=== PATIENT | female | born 1965 | race Caucasian/White ===

== ENCOUNTER 2016-06-10 17:02 | Emergency (ER) | payer OTHER ==
[~2016-06-10] VITALS: Ht 170.2 cm; Wt 83.9 kg
[2016-06-10] MEDS ORDERED: SIMV20TA2 (17:12)
[2016-06-10] MEDS ORDERED: ONDANSETRON 4MG/2ML VIAL (J2405) IV ONE (17:45)
[2016-06-10] MEDS ORDERED: ACETAMINOPHEN 325 MG TAB PO ONE (17:45)
[2016-06-10] MEDS ORDERED: PANTOPRAZOLE 40MG INJ (PROTONIX) (C9113) IV ONE (17:45)
[2016-06-10] MEDS ORDERED: NS 1,000 ML IV ONE (17:45)
[2016-06-10 18:08] LABS: BASO % 0.4 % (0.0-1.0); EOS % 0.6 % (0.0-3.0); LARGE UNSTAINED CELL # 0.2 K/mm3 (0.0-0.4); LARGE UNSTAINED CELL % 2.3 % (0.0-4.0); LYMPH # 2.2 K/mm3 (1.5-4.5); MEAN CORPUSCULAR HEMOGLOBIN 30.4 pg (27.0-33.0); MEAN CORPUSCULAR HGB CONC 33.8 g/dl (32.0-36.5); MONO # 0.5 K/mm3 (0.0-0.8); MONO % 5.7 % (0.0-5.0); PLATELET COUNT, AUTOMATED 219 k/mm3 (150-450)
--- NOTE | 2016-06-10 18:22 | REP ---
Chest two views HISTORY: Abdominal pain Comparison: 02/14/2016 Increased density is present in the right lower lobe consistent with atelectasis or infiltrate. The left lung is clear. The heart is normal in size. The pulmonary vasculature is normal in appearance. The bony structure is intact. IMPRESSION: Right lower lobe atelectasis or infiltrate. Signed by Chay Klein MD 06/10/2016 06:14 P
[2016-06-10 18:38] LABS: ALBUMIN 3.3 GM/DL (3.2-5.2); ALBUMIN/GLOBULIN RATIO 0.75 (1.00-1.93); ALKALINE PHOSPHATASE 131 U/L (45-117); ALT/SGPT 150 U/L (12-78); ANION GAP 10 MEQ/L (8-16); AST/SGOT 157 U/L (15-37); BILIRUBIN,DIRECT 0.3 MG/DL (0.0-0.2); BILIRUBIN,TOTAL 0.6 MG/DL (0.2-1.0); BLOOD UREA NITROGEN 16 MG/DL (7-18); CALCIUM LEVEL 8.9 MG/DL (8.5-10.1); CARBON DIOXIDE LEVEL 28 MEQ/L (21-32); CHLORIDE LEVEL 96 MEQ/L (98-107); CREATININE FOR GFR 0.87 MG/DL (0.55-1.02); GLOMERULAR FILTRATION RATE > 60.0 (>51); GLUCOSE, FASTING 107 MG/DL (70-105); POTASSIUM SERUM 3.2 MEQ/L (3.5-5.1); SODIUM LEVEL 134 MEQ/L (136-145); TOTAL PROTEIN 7.7 GM/DL (6.4-8.2)
[2016-06-10] MEDS ORDERED: ZITHTAB PO (20:22)
--- NOTE | 2016-06-10 20:28 | ECGEPIP ---
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 Order Number: [id number] Reading MD: Elena Gruber Measurements Intervals [place] Rate: 50 P: 65 TX: 145 QRS: 72 QRSD: 93 T: 53 QT: 436 QTc: 400 Interpretive Statements SINUS BRADYCARDIA NSTTW ABNORMALITY DECREASED RATE 02/14/16 Electronically Signed On 06-10-2016 20:28:13 EDT by Elena Gruber
[2016-06-10 20:41] VITALS: BP 109/59
== END 2016-06-10 20:44 | disposition home or self-care (01) ==
LOC: M ED 19:06
DX: J18.9 Pneumonia, unspecified organism (principal); J10.1 Influenza due to other identified influenza virus with other respiratory manifestations; E86.0 Dehydration
CPT/HCPCS: 71020; 80048; 80076; 81001; 83605; 85025; 87040; 93005; 96361; 96374; 96375; 99283; C9113; J2405

== ENCOUNTER 2016-12-10 23:33 | Emergency (ER) | payer OTHER ==
[~2016-12-10] VITALS: Ht 170.2 cm; Wt 86.1 kg
[~2016-12-10 23:33] MED LIST: SIMV20TA2; ZITHTAB PO
[2016-12-10] MEDS ORDERED: INFL10VL IV (23:43)
[2016-12-10] MEDS ORDERED: KETOROLAC 30 MG/ML VIAL (J1885) IV ONE (23:45)
[2016-12-10] MEDS ORDERED: ONDANSETRON 4MG/2ML VIAL (J2405) IV ONE (23:45)
[2016-12-11 00:21] LABS: BASO # 0.1 10^3/uL (0.0-0.2); BASO % 0.4 % (0.0-1.0); EOS # 0.1 10^3/uL (0.0-0.50); EOS % 0.5 % (0.0-3.0); IMMATURE GRANULOCYTE % 0.3 % (0-0); LYMPH # 3.7 10^3/uL (1.5-4.5); MEAN CORPUSCULAR HEMOGLOBIN 30.8 pg (27.0-33.0); MEAN CORPUSCULAR HGB CONC 35.3 g/dl (32.0-36.5); MEAN CORPUSCULAR VOLUME 87.4 fl (80.0-96.0); MONO # 1.1 10^3/uL (0.0-0.8); MONO % 8.2 % (0.0-5.0); NEUTROPHILS # 7.8 10^3/uL (1.8-7.7); NEUTROPHILS % 61.6 % (36.0-66.0); PLATELET COUNT, AUTOMATED 203 10^3/uL (150-450); RED CELL DISTRIBUTION WIDTH 12.6 % (11.5-14.5); WHITE BLOOD COUNT 12.7 10^3/uL (4.0-10.0)
[2016-12-11 00:42] LABS: ALBUMIN 4.1 GM/DL (3.2-5.2); ALBUMIN/GLOBULIN RATIO 1.21 (1.00-1.93); ALKALINE PHOSPHATASE 68 U/L (45-117); ALT/SGPT 21 U/L (12-78); ANION GAP 8 MEQ/L (8-16); AST/SGOT 12 U/L (15-37); BILIRUBIN,DIRECT 0.1 MG/DL (0.0-0.2); BILIRUBIN,TOTAL 0.5 MG/DL (0.2-1.0); BLOOD UREA NITROGEN 18 MG/DL (7-18); CALCIUM LEVEL 9.3 MG/DL (8.5-10.1); CARBON DIOXIDE LEVEL 23 MEQ/L (21-32); CHLORIDE LEVEL 105 MEQ/L (98-107); CREATININE FOR GFR 0.94 MG/DL (0.55-1.02); GLOMERULAR FILTRATION RATE > 60.0 (>51); GLUCOSE, FASTING 133 MG/DL (70-105); POTASSIUM SERUM 3.9 MEQ/L (3.5-5.1); SODIUM LEVEL 136 MEQ/L (136-145); TOTAL PROTEIN 7.5 GM/DL (6.4-8.2)
[2016-12-11] MEDS ORDERED: ISOVUE-370 76% 100ML VIAL (Q9967) As Ordered ONE (00:54)
[2016-12-11 01:04] LABS: CALCIUM OXALATE CRYSTALS LARGE
[2016-12-11] MEDS ORDERED: FLOM5CAP PO (02:26)
[2016-12-11] MEDS ORDERED: PERC5TAB12 PO (02:26)
[2016-12-11] MEDS ORDERED: COLA100C5 PO (02:27)
[2016-12-11] MEDS ORDERED: PERCOCET 5MG/325MG TAB PO ONE (02:30)
--- NOTE | 2016-12-11 02:30 | REPUSA ---
CLINICAL HISTORY: Abdominal pain. TECHNIQUE: Multiple axial, sagittal and coronal CT images were obtained through the abdomen and pelvi s after administration of intravenous contrast material. COMMENTS: Comparison to prior exam on 02/14/2016. 4 mm obstructing stone of the distal left ureter just above the ureterovesical junction. Mild left hy droureteronephrosis. Unchanged mild hepatomegaly with fatty liver infiltration. There is no intra or extrahepatic biliary ductal dilatation. The spleen is normal. The gallbladder is within normal limits. The pancreas is of normal contour and attenuation characteristics. There is no evidence of adrenal mass. Both kidneys demonstrate prompt and equal nephrograms. The kidneys are normal in size, shape and conf iguration. There is no evidence of renal or ureteral mass. No renal or right ureteral calculi are michelle ntified. There is no right hydroureter or hydronephrosis. No evidence for appendicitis. There is no bowel wall thickening. No evidence for small or large tremaine l obstruction. There is no evidence of abdominal ascites or lymphadenopathy. There is no evidence of intrinsic or extrinsic bladder mass. There is no pelvic ascites or lymphadeno rohan. Images of the lung bases show no evidence of pleural or parenchymal mass. There are no pleural effusi ons. The bony structures are free of lytic or blastic lesions. Multilevel degenerative changes are seen in volving the thoracolumbar spine. Scattered calcifications are seen involving the aorta and major bran ches compatible with atherosclerosis. IMPRESSION: Obstructing stone of the distal third of the left ureter. Not present on the prior exam. Unchanged hepatomegaly with fatty liver infiltration. Thank you for your kind referral of this patient.
[2016-12-11 02:38] VITALS: BP 120/64
--- NOTE | 2016-12-11 07:12 | ECGEPIP ---
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
== END 2016-12-11 02:43 | disposition home or self-care (01) ==
LOC: M ED 23:33
DX: N20.1 Calculus of ureter (principal); R31.9 Hematuria, unspecified; Z72.0 Tobacco use
CPT/HCPCS: 74177; 80048; 80076; 81001; 83690; 85025; 93005; 93041; 96374; 96375; 99284; J1885; J2405; Q9967

== ENCOUNTER → 2017-11-10 | Outpatient (CLI) | payer OTHER ==
[~2017-11-10] MED LIST changes: +E-Z-GAS II EFFERVESCENT PACKET (SODIUM BICARB./CITRIC ACID/SIMETHICONE) As Ordered; +E-Z-HD 98% w/w 340GM SUSP BTL As Ordered; +E-Z-PAQUE 96% w/w SUSP 176GM BTL As Ordered; -SIMV20TA2; -ZITHTAB PO
== END ==
LOC: M RAD 08:16
DX: R93.3 Abnormal findings on diagnostic imaging of other parts of digestive tract (principal)

== ENCOUNTER 2018-01-05 19:10 | Emergency (ER) | payer OTHER | END 2018-01-05 22:31 | disposition home or self-care (01) | LOC: M ED 19:10 | DX: S86.902A Unspecified injury of unspecified muscle(s) and tendon(s) at lower leg level, left leg, initial encounter (principal); X58.XXXA Exposure to other specified factors, initial encounter; Y92.89 Other specified places as the place of occurrence of the external cause; E78.5 Hyperlipidemia, unspecified; Z87.891 Personal history of nicotine dependence; Z79.899 Other long term (current) drug therapy | CPT/HCPCS: 93971 ==

== ENCOUNTER 2018-11-27 17:12 | Emergency (ER) | payer OTHER ==
[~2018-11-27] VITALS: Ht 172.7 cm; Wt 90.9 kg
[~2018-11-27 17:12] MED LIST changes: +COLA100C5 PO; -E-Z-GAS II EFFERVESCENT PACKET (SODIUM BICARB./CITRIC ACID/SIMETHICONE) As Ordered; -E-Z-HD 98% w/w 340GM SUSP BTL As Ordered; -E-Z-PAQUE 96% w/w SUSP 176GM BTL As Ordered; +FLOM0.4C39 PO; +HYDR-733 PO; +INFL10VL IV; +NAPR-837 PO; +PERC5TAB12 PO; +PRED10PA PO; +SIMV20TA2; +ZITHTAB PO
[2018-11-27] MEDS ORDERED: HYDR200T3 (17:21)
[2018-11-27] MEDS ORDERED: OREN1INJ IV (17:24)
[2018-11-27 19:21] VITALS: BP 127/65
--- NOTE | 2018-11-28 09:18 | REP ---
Right foot four views : There is no fracture or dislocation. Mineralization and joint spaces are normal. There are no calcifications or foreign bodies. Impression: Negative right foot . Electronically Signed by Kristofer Young MD 11/28/2018 09:10 A
== END 2018-11-27 19:42 | disposition home or self-care (01) ==
LOC: M ED 17:12
DX: S93.601A Unspecified sprain of right foot, initial encounter (principal); W18.49XA Other slipping, tripping and stumbling without falling, initial encounter; Y92.019 Unspecified place in single-family (private) house as the place of occurrence of the external cause; E78.5 Hyperlipidemia, unspecified; K21.9 Gastro-esophageal reflux disease without esophagitis; M06.9 Rheumatoid arthritis, unspecified; Z87.81 Personal history of (healed) traumatic fracture; Z79.899 Other long term (current) drug therapy